=== PATIENT | female | born 1980 ===

== ENCOUNTER 2017-04-20 18:53 | Emergency (ER) | payer MEDICAID, OTHER ==
[2017-04-20 19:11] VITALS: BP 126/77; PULSE 91; RESP 16; TEMP 98.7; O2SAT 100
[2017-04-20 20:02] LABS: BASO # 0.1 K/uL (0.0-0.2); BASO % 1.3 % (0.0-2.0); EOS % 0.5 % (0.0-4.0); HEMOGLOBIN 14.2 g/dL (12.0-16.0); LYMPH # 2.2 K/uL (1.0-4.3); LYMPH % 24.9 % (20.0-40.0); MEAN CELL VOLUME 92.5 fl (81.0-99.0); MEAN CORPUSCULAR HEMOGLOBIN 30.6 pg (27.0-31.0); MEAN CORPUSCULAR HGB CONC 33.1 g/dL (33.0-37.0); MEAN PLATELET VOLUME 8.5 fl (7.2-11.7); MONO # 0.5 K/uL (0.0-0.8); MONO % 5.8 % (0.0-10.0); NEUT # 5.8 K/uL (1.8-7.0); NEUT % 67.5 % (50.0-75.0); NRBC % 0.1 % (0.0-0.0); RBC 4.64 Mil/uL (3.80-5.20); RED CELL DISTRIBUTION WIDTH 13.9 % (11.5-14.5); WHITE BLOOD COUNT 8.6 K/uL (4.8-10.8)
[2017-04-20 20:34] LABS: ALB/GLOB RATIO 1.1 (1.0-2.1); ALBUMIN 4.4 g/dL (3.5-5.0); ALT/SGPT 31 U/L (9-52); AST/SGOT 34 U/L (14-36); BLOOD UREA NITROGEN 10 mg/dl (7-17); GFR AFRICAN-AMERICAN > 60; GFR NON-AFRICAN AMERICAN > 60; LIPASE 116 U/L (23-300)
[2017-04-20 20:36] LABS: SQUAMOUS EPITHIAL 13 /hpf (0-5); URINE BACTERIA RARE (<OCC); URINE BILIRUBIN NEGATIVE (NEGATIVE); URINE BLOOD NEGATIVE (NEGATIVE); URINE CLARITY CLOUDY (Clear); URINE COLOR YELLOW (YELLOW); URINE GLUCOSE (UA) 50 mg/dL (Normal); URINE LEUKOCYTE ESTERASE NEG Leu/uL (Negative); URINE NITRATE NEGATIVE (NEGATIVE); URINE PROTEIN 30 mg/dL (NEGATIVE); URINE UROBILINOGEN 0.2-1.0 mg/dL (0.2-1.0)
--- NOTE | 2017-04-20 22:04 | ED PDOC ---
HPI: General Adult Time Seen by Provider: 04/20/17 19:21 Chief Complaint (Nursing): Abdominal Pain Chief Complaint (Provider): Abdominal Pain History Per: Patient History/Exam Limitations: no limitations Onset/Duration Of Symptoms: Days (x yesterday) Current Symptoms Are (Timing): Still Present Additional Complaint(s): Radha is a 36 year old female (G-8/P-3) who presents to the emergency department complaining of lower left-sided abdominal pain since yesterday. Denies any nausea, vaginal bleeding, urinary symptoms, vomiting, diarrhea or fever. Patient states she missed her last menstrual cycle. Patient reports taking morning after pill on 03/18 after she had unprotected sex. Patient believes she may be . PMD: No Family Provider Past Medical History Reviewed: Historical Data, Nursing Documentation, Vital Signs Vital Signs: Last Vital Signs Temp 98.7 F 04/20/17 19:09 Pulse 91 H 04/20/17 19:09 Resp 16 04/20/17 19:09 BP 126/77 04/20/17 19:09 Pulse Ox 100 04/20/17 22:10 - Medical History PMH: No Chronic Diseases - Surgical History Surgical History: (x 3) Other surgeries: Left kidney removed for donation - Family History Family History: States: Unknown Family Hx - Social History Current smoker - smoking cessation education provided: No Alcohol: None Drugs: Denies - Immunization History Hx Tetanus Toxoid Vaccination: No - Allergies Allergies/Adverse Reactions: Allergies Allergy/AdvReac Type Severity Reaction Status Date / Time No Known Allergies Allergy Verified 04/20/17 19:09 Review of Systems ROS Statement: Except As Marked, All Systems Reviewed And Found Negative Constitutional: Negative for: Fever Respiratory: Positive for: Cough Gastrointestinal: Positive for: Abdominal Pain. Negative for: Nausea, Vomiting , Diarrhea Genitourinary Female: Negative for: Dysuria, Hematuria, Vaginal Bleeding Physical Exam - Reviewed Nursing Documentation Reviewed: Yes Vital Signs Reviewed: Yes - Physical Exam Appears: Positive for: Non-toxic Head Exam: Positive for: ATRAUMATIC, NORMAL INSPECTION, NORMOCEPHALIC Skin: Positive for: Normal Color, Warm, Dry Eye Exam: Positive for: EOMI, Normal appearance, PERRL ENT: Positive for: Normal ENT Inspection Neck: Positive for: Normal Cardiovascular/Chest: Positive for: Regular Rate, Rhythm Respiratory: Positive for: Normal Breath Sounds. Negative for: Respiratory Distress Gastrointestinal/Abdominal: Positive for: Tenderness (Mild tenderness to left lower quadrant) Back: Positive for: Normal Inspection Extremity: Positive for: Normal ROM Neurologic/Psych: Positive for: Alert, Oriented (x 3) - Laboratory Results Result Diagrams: 04/20/17 19:56 04/20/17 19:56 Urine POC: Positive - ECG O2 Sat by Pulse Oximetry: 100 (RA) Pulse Ox Interpretation: Normal Medical Decision Making Medical Decision Making: Time: 19:34 Impression: 36 year old female with abdominal pain, signs of Plan: - Type and Screen Stat - Beta-hCG, Quadatitive - CMP - Lipase - Urine - ED Urine Dipstick - CBC - Urinalysis Stat - OB Transvaginal Ultrasound Time: 22:19 OB Transvaginal Ultrasound FINDINGS: Gestation: There is an intrauterine gestational sac with thick sheikh. Gestational sac measures 6.9 mm. A yolk sac is visible. A pole is present heart rate is 124 bpm. CRL 2 mm gestational age 5 weeks 5 days. The JONAH 12/16/2017 Clinical GA 5 weeks JONAH 12/21/2017 Placenta/amniotic fluid: Cannot be adequately evaluated due to the early gestational age. Uterus/cervix: Unremarkable. No myometrial mass. Uterus measures 7.6 cm x 4.1 cm x 6 cm. The uterus is anteverted. The cervix measures 4 cm. Ovaries: Unremarkable. No mass. LEFT 2.7 cm x 1.5 cm x 1.4 cm. RIGHT 3.3 cm x 1.6 cm x 2.9 cm Free fluid: No free fluid. IMPRESSION: 1. Single living intrauterine 2. Gestational age 5 weeks 5 days. 3. Negative uterus and ovaries Lab reviewed. No clinical abnormalities. Patient is stable for discharge. Diagnosis is abdominal pain and . Patient is referred to [facility] for follow up. Scribe Attestation: Documented by Cosmo Gonzalez, acting as a scribe for Hernan Billings MD Provider Scribe Attestation: All medical record entries made by the Scribe were at my direction and personally dictated by me. I have reviewed the chart and agree that the record accurately reflects my personal performance of the history, physical exam, medical decision making, and the department course for this patient. I have also personally directed, reviewed, and agree with the discharge instructions and disposition. Disposition - Clinical Impression Clinical Impression: Abdominal pain during - Patient ED Disposition Is Patient to be Admitted: No - Disposition [facility]errals[facility] [Outside] Disposition: Routine/Home Disposition Time: 22:27 Condition: STABLE Instructions: Abdominal Pain in (ED) Forms: [facility] (Malawian) Print Language: SWEDISH
--- NOTE | 2017-04-21 18:20 | US ---
HISTORY: Left lower quadrant pain COMPARISON: Correlation made with prior pelvic ultrasound 08/11/2015 TECHNIQUE: Transvaginal sonographic evaluation of the pelvis performed. FINDINGS: The uterus is anteverted measuring approximately UTERUS: 7.6 x 4.1 x 6.0 cm. Cervix measures 4.1 cm. There is a single living intrauterine gestation. Gestational sac: MSD = 0.7 cm = out of range Yolk sac: 0.3 cm pole: CRL = 0.2 cm = 5 weeks 5 days Heart motion: 124 BPM Average ultrasound age: 5 weeks 5 days 0 weeks 4 days JONAH based on average ultrasound age: 0912/16/2017 Measures cm. Normal in size and appearance. No fibroid or other mass lesion seen. ENDOMETRIUM: NA CERVIX: No cervical abnormality identified. RIGHT OVARY: Measures approximately 3.3 x 1.7 x 2.9 cm. No solid mass. Normal flow. LEFT OVARY: Measures approximately 2.7 x 1.5 x 1.4 cm. No solid mass. Normal flow. FREE FLUID: No significant free fluid noted. OTHER FINDINGS: None. IMPRESSION: Single living intrauterine station estimated at approximately 5 weeks 5 days 0 weeks 4 days heart rate detected at 1:24 BPM
== END 2017-04-20 22:47 | disposition home or self-care (01) ==
LOC: H.ER 18:53
DX: O26.891 Other specified pregnancy related conditions, first trimester (principal); Z3A.01 Less than 8 weeks gestation of pregnancy

== ENCOUNTER 2018-08-13 22:29 | Emergency (ER) | payer MEDICAID, OTHER ==
--- NOTE | 2018-08-14 00:04 | ED PDOC ---
HPI: Female Pain Time Seen by Provider: 08/13/18 22:59 Chief Complaint (Nursing): Female Genitourinary Chief Complaint (Provider): : abd pain, vaginal bleeding History Per: Patient, Customer Service Administrator (Nilson sharma/certified translator interpreter) Onset/Duration Of Symptoms: Days (2) Current Symptoms Are (Timing): Still Present Quality Of Discomfort: Cramping Additional Complaint(s): 37 y/o female, approximately 8 weeks , presents for evaluation of lower abdominal cramping and vaginal spotting x 2 days. Denies fever, nausea/vomiting, chest pain, shortness of breath, palpitations, urinary symptoms. Patient saw her Shoe Cleaner today and was sent to ED for an ultrasound Shoe Cleaner: Dr. Jarvis Abnormal Vaginal Bleeding: Yes Last Menstral Period: 06/11/18 : 5 Para: 3 Miscarriage: 1 Past Medical History Reviewed: Historical Data, Nursing Documentation, Vital Signs Vital Signs: Last Vital Signs Temp 98.1 F 08/13/18 22:49 Pulse 82 08/13/18 22:49 Resp 16 08/13/18 22:49 BP 118/70 08/13/18 22:49 Pulse Ox 97 08/13/18 22:49 Primary Care Provider: Thor Jarvis - Medical History PMH: No Chronic Diseases - Surgical History Surgical History: (x 3) - Family History Family History: States: Unknown Family Hx - Immunization History Hx Tetanus Toxoid Vaccination: No - Allergies Allergies/Adverse Reactions: Allergies Allergy/AdvReac Type Severity Reaction Status Date / Time No Known Allergies Allergy Verified 04/20/17 19:09 Review of Systems ROS Statement: Except As Marked, All Systems Reviewed And Found Negative Genitourinary Female: Positive for: Vaginal Bleeding, Pelvic Pain Physical Exam - Reviewed Nursing Documentation Reviewed: Yes Vital Signs Reviewed: Yes - Physical Exam Appears: Positive for: Well, Non-toxic, No Acute Distress Head Exam: Positive for: ATRAUMATIC, NORMAL INSPECTION, NORMOCEPHALIC Skin: Positive for: Normal Color Eye Exam: Positive for: Normal appearance ENT: Positive for: Normal ENT Inspection Cardiovascular/Chest: Positive for: Regular Rate, Rhythm Respiratory: Positive for: Normal Breath Sounds Gastrointestinal/Abdominal: Positive for: Bowel Sounds, Soft, Tenderness (suprapubic) Pelvic Exam: Positive for: External Exam Normal, No Cerv. Motion Tender, Blood (brown discharge in vaginal vault), Other (exam mixer and blender [facility] tech). Negative for: Active Bleeding, Tender Adnexa, Tender Uterus Back: Positive for: Normal Inspection Extremity: Positive for: Normal ROM Neurological/Psych: Positive for: Awake, Alert, Oriented (x3) - Laboratory Results Result Diagrams: 08/14/18 00:14 08/14/18 00:14 - ECG O2 Sat by Pulse Oximetry: 97 - Progress ED Course And Treament: 37 y/o female with pelvic pain and vaginal spotting in early -upreg -udip -cbc -cmp -beta hcg -OB TV u/s Obstetric ultrasound, transvaginal. Indication: Cramping, spotting with . Technique: Real-time ultrasound images were obtained. Findings: The uterus measures 11.5x5.3x6.8 cm. Anteverted uterus. Cervical length measuring 3.7 cm. Single, intrauterine gestation. Estimated gestational age 6 weeks and 4 days. Absent cardiac activity. Nonvisualization of the right ovary. Normal left ovary. Impression: demise Patient educated on findings (via [facility] tech/certified translator interpreter), discharged with instructions to follow up with business control specialist within 2 days Return precautions given Disposition - Clinical Impression Clinical Impression: demise due to miscarriage - Patient ED Disposition Is Patient to be Admitted: No Counseled Patient/Family Regarding: Studies Performed, Diagnosis, Need For Followup - Disposition Referrals: Kimo Forde MD [Primary Care Provider] - Disposition: Routine/Home Disposition Time: 03:15 Condition: STABLE Instructions: Dealing With Miscarriage, Miscarriage Print Language: SLOVENIAN
[2018-08-14 00:27] LABS: BASO % 0.4 % (0.0-2.0); EOS # 0.2 K/uL (0.0-0.7); EOS % 2.6 % (0.0-4.0); HEMOGLOBIN 12.7 g/dL (12.0-16.0); LYMPH # 2.5 K/uL (1.0-4.3); LYMPH % 29.3 % (20.0-40.0); MEAN CELL VOLUME 92.4 fl (81.0-99.0); MEAN CORPUSCULAR HEMOGLOBIN 31.5 pg (27.0-31.0); MEAN CORPUSCULAR HGB CONC 34.1 g/dL (33.0-37.0); MEAN PLATELET VOLUME 8.4 fl (7.2-11.7); MONO # 0.6 K/uL (0.0-0.8); MONO % 7.4 % (0.0-10.0); NEUT # 5.2 K/uL (1.8-7.0); NEUT % 60.3 % (50.0-75.0); NRBC % 0.1 % (0.0-0.0); RBC 4.04 Mil/uL (3.80-5.20); RED CELL DISTRIBUTION WIDTH 13.8 % (11.5-14.5); WHITE BLOOD COUNT 8.7 K/uL (4.8-10.8)
[2018-08-14 00:35] LABS: ALB/GLOB RATIO 1.3 (1.0-2.1); ALBUMIN 4.5 g/dL (3.5-5.0); ALT/SGPT 26 U/L (9-52); AST/SGOT 29 U/L (14-36); BLOOD UREA NITROGEN 10 mg/dl (7-17); CALCIUM 9.1 mg/dL (8.4-10.2); GFR NON-AFRICAN AMERICAN > 60
[2018-08-14 06:38] VITALS: BP 112/55; PULSE 63; RESP 18; TEMP 98; O2SAT 99
--- NOTE | 2018-08-14 14:40 | US ---
Date of service: 08/14/2018 HISTORY: ; cramping, spotting; LMP 06/10/2018; beta HCG 4842.6 COMPARISON: None available. TECHNIQUE: Transvaginal FINDINGS: UTERUS: Measures 11.5 x 5.3 x 6.8 cm. Normal in size and appearance. No fibroid or other mass lesion seen. There is an intrauterine gestation present without verifiable heartbeat activity-there is at this time no apparent M-mode this PACS packages This has been requested. The technologist has noted no heartbeat seen-however no M-mode is apparent Mean gestational sac diameter is 2 cm corresponding to 6 weeks 4 days. A tiny yolk sac 8 mm is noted. An embryonic pole of 7 mm corresponding to 6 weeks 4 days is noted. CERVIX: No cervical abnormality identified. RIGHT OVARY: Not visualized. LEFT OVARY: Measures 2.5 x 1.9 x 1.7 cm. No solid mass. Normal flow. FREE FLUID: No significant free fluid noted. OTHER FINDINGS: None. IMPRESSION: Although the technologist has noted-no heart beat seen on the worksheet and the preliminary [place] rad report has stated demise, an M-mode tracing of the heart beat is not appreciated in this is recommended to be included in this PACS package This recommendation has been placed in the tech notes. Pending clinical management, would strongly consider rechecking transvaginal ultrasound technique with M-mode heart tracing By biometric parameters the age is 6 weeks 4 days. Contrast with the clinical dates by LMP of 9 weeks 2 days. Comments: Study marked for PA review .
== END 2018-08-14 03:25 | disposition home or self-care (01) ==
LOC: H.ER 22:29
DX: O03.9 Complete or unspecified spontaneous abortion without complication (principal); Z3A.01 Less than 8 weeks gestation of pregnancy

== ENCOUNTER 2018-08-15 16:19 | Emergency (ER) | payer MEDICAID ==
[2018-08-15 17:08] VITALS: RESP 18; O2SAT 99
[2018-08-15 17:09] VITALS: BMI 32.2
[2018-08-15 17:51] LABS: BASO % 0.4 % (0.0-2.0); EOS # 0.2 K/uL (0.0-0.7); LYMPH # 2.1 K/uL (1.0-4.3); LYMPH % 24.3 % (20.0-40.0); MEAN CELL VOLUME 93.3 fl (81.0-99.0); MEAN CORPUSCULAR HEMOGLOBIN 31.3 pg (27.0-31.0); MEAN CORPUSCULAR HGB CONC 33.6 g/dL (33.0-37.0); MEAN PLATELET VOLUME 8.4 fl (7.2-11.7); MONO # 0.6 K/uL (0.0-0.8); MONO % 6.9 % (0.0-10.0); NEUT # 5.6 K/uL (1.8-7.0); NEUT % 66.4 % (50.0-75.0); NRBC % 0.1 % (0.0-0.0); RBC 4.15 Mil/uL (3.80-5.20); RED CELL DISTRIBUTION WIDTH 13.8 % (11.5-14.5); WHITE BLOOD COUNT 8.5 K/uL (4.8-10.8)
[2018-08-15 18:03] LABS: ALB/GLOB RATIO 1.2 (1.0-2.1); ALBUMIN 4.4 g/dL (3.5-5.0); ALT/SGPT 22 U/L (9-52); AST/SGOT 20 U/L (14-36); BLOOD UREA NITROGEN 8 mg/dl (7-17); CALCIUM 8.9 mg/dL (8.4-10.2); GFR NON-AFRICAN AMERICAN > 60
--- NOTE | 2018-08-15 18:21 | ED PDOC ---
HPI: General Adult Time Seen by Provider: 08/15/18 17:06 Chief Complaint (Nursing): Female Genitourinary History Per: Patient, Diagnostic Sales Specialist (voyce congolese line used [id number]) Onset/Duration Of Symptoms: Days Recently: Seen In ED Additional Complaint(s): 37 yo F, A2 presents to ER for follow up to a call back. Pt reports she was seen here and discharged yesterday after being told she had demise. Pt was called back today as new US reports stated M-mode was not done to look at fetus HR. Pt notes since her visit she has been having suprapubic abdominal pain with vaginal spotting. Blood is when she wipes and in her underwear, but small amounts. She has been taking Tylenol for pain, last dose yesterday. LMP: 06/10 OBGYN: Dr. Jarvis Past Medical History Reviewed: Historical Data, Nursing Documentation, Vital Signs Vital Signs: Last Vital Signs Temp 98.6 F 08/15/18 17:07 Pulse 75 08/15/18 17:07 Resp 18 08/15/18 17:07 BP 120/75 08/15/18 17:07 Pulse Ox 99 08/15/18 17:07 Primary Care Provider: Kimo Forde - Medical History PMH: Chronic Kidney Disease - Surgical History Surgical History: (x 3) - Family History Family History: States: Unknown Family Hx - Immunization History Hx Tetanus Toxoid Vaccination: No - Allergies Allergies/Adverse Reactions: Allergies Allergy/AdvReac Type Severity Reaction Status Date / Time No Known Allergies Allergy Verified 04/20/17 19:09 Review of Systems Constitutional: Negative for: Fever, Chills Gastrointestinal: Positive for: Abdominal Pain Genitourinary Female: Positive for: Vaginal Bleeding. Negative for: Dysuria, Frequency, Vaginal Discharge Physical Exam - Reviewed Nursing Documentation Reviewed: Yes Vital Signs Reviewed: Yes - Physical Exam Comments: GENERAL APPEARANCE: Patient is awake, alert, oriented x 3, in no distress. SKIN: Warm, dry; (-) cyanosis. EYES: (-) conjunctival pallor, (-) scleral icterus. ENMT: Mucous membranes moist. NECK: (-) tenderness, (-) stiffness, (-) lymphadenopathy. CHEST AND RESPIRATORY: (-) rales, (-) rhonchi, (-) wheezes; breath sounds equal bilaterally. HEART AND CARDIOVASCULAR: (-) irregularity; (-) murmur, (-) gallop. ABDOMEN AND GI: (-) distention. Bowel sounds active; (+) mild suprapubic tenderness (-) guarding, (-) rebound, (-) palpable masses, (-) CVA tenderness. EXTREMITIES: (-) deformity, (-) edema, (+) distal pulses. NEURO AND PSYCH: Mental status as above; (-) focal findings. - Laboratory Results Result Diagrams: 08/15/18 17:41 08/15/18 17:41 Lab Results: Total Bilirubin 0.5 mg/dl (0.2-1.3) 08/15/18 17:41 AST 20 U/L (14-36) 08/15/18 17:41 ALT 22 U/L (9-52) 08/15/18 17:41 Alkaline Phosphatase 40 U/L (38-126) 08/15/18 17:41 Total Protein 7.8 G/DL (6.3-8.2) 08/15/18 17:41 Albumin 4.4 g/dL (3.5-5.0) 08/15/18 17:41 Globulin 3.5 gm/dL (2.2-3.9) 08/15/18 17:41 Albumin/Globulin Ratio 1.2 (1.0-2.1) 08/15/18 17:41 Beta HCG, Quant 3853.00 mIU/mL 08/15/18 17:41 - ECG O2 Sat by Pulse Oximetry: 99 Medical Decision Making Medical Decision Makin:06 initial eval -miscarriage vs threatened -- labs -- beta hcg -- type and screen -- OB US -- pt does not want anything for pain -- re eval US reports from 08/14/2018 UTERUS: Measures 11.5 x 5.3 x 6.8 cm. Normal in size and appearance. No fibroid or other mass lesion seen. There is an intrauterine gestation present without verifiable heartbeat activity-there is at this time no apparent M-mode this PACS packages This has been requested. The technologist has noted no heartbeat seen-however no M-mode is apparent Mean gestational sac diameter is 2 cm corresponding to 6 weeks 4 days. A tiny yolk sac 8 mm is noted. An embryonic pole of 7 mm corresponding to 6 weeks 4 days is noted. IMPRESSION: Although the technologist has noted-no heart beat seen on the worksheet and the preliminary [place] rad report has stated demise, an M-mode tracing of the heart beat is not appreciated in this is recommended to be included in this PACS package This recommendation has been placed in the tech notes. Pending clinical management, would strongly consider rechecking transvaginal ultrasound technique with M-mode heart tracing By biometric parameters the age is 6 weeks 4 days. Contrast with the clinical dates by LMP of 9 weeks 2 days. Comments: Study marked for PA review . 18:20 likely miscarriage as beta hcg quant has gone down 08/14/2018 it was 4842.6 today it is 3853.0 otherwise labs unremarkable US FINDINGS: GESTATION: Intrauterine gestational sac and pole. A pole and gestational sac correspond to approximate 6 week and 4 day gestation. There is no cardiac activity identified. Small subchorionic bleed measuring 2 x 2 cm anteriorly suspected. UTERUS: Unremarkable. No myometrial mass. CERVIX: Closed. Unremarkable. OVARIES: Right corpus luteum cyst measuring 1.6 x 1 cm. FREE FLUID: No free fluid. IMPRESSION: Findings compatible with demise. Small subchorionic bleed. Small right corpus luteum cyst. Close clinical correlation advised. 20:[address] Kelly Cohen as he was notifed previously of results [phone] 20:[address] no call back from Dr. Traylor as per previous reports he was contacted multiple times regarding US discrepancies and never called back Pt is asking to leave pt is otherwise stable at this time for dc, labs wnl, VSS, abdomen is soft and non tender, hemonymaically stable used congolese voyce [id number] to discuss results, diagnosis, treatment, return precautions and f/u with pt who is understanding, in agreement and stable for dc Disposition - Clinical Impression Clinical Impression: demise due to miscarriage - Patient ED Disposition Is Patient to be Admitted: No Counseled Patient/Family Regarding: Studies Performed, Diagnosis, Need For Followup - Disposition Referrals: Thor Jarvis MD [Medical Doctor] - Disposition: Routine/Home Disposition Time: 20:41 Condition: STABLE Additional Instructions: Regrese a la ED para sntomas nuevos o que empeoran, fiebre> 100.4, dolor intens o o sangrado. Gaston un seguimiento con carft mdico simon pronto john sea posible. Continuar con Tylenol segn sea necesario para el dolor. Instructions: Miscarriage, Dealing With Miscarriage Forms: [facility] (Sinhala) Print Language: LAO - POA Present On Arrival: None
[2018-08-15 22:26] VITALS: BP 103/68; PULSE 72; TEMP 98.7
--- NOTE | 2018-08-16 13:40 | US ---
Date of service: 08/15/2018 PROCEDURE: OB Pelvic Ultrasound HISTORY: call back, M-mode needed 06/10/2018 COMPARISON: 08/14/2018 FINDINGS: UTERUS: Gestational sac: 22 mm equal to 6 weeks 5 days [place]-rump length: 6 mm equivalent to 6 weeks 3 days Heart rate: No cardiac activity detected age (Ultrasound estimated): 6 weeks 4 days [place]-gestational hemorrhage: There is a perigestational hemorrhage identified measuring approximately 2.0 x 1.9 x 2.0 cm. Date of delivery (Ultrasound estimated) : 04/06/2019 Uterus measures 9.6 x 5.3 x 5.6 cm. Normal in size and appearance. CERVIX: Measures 3.1 cm. Long and closed. No cervical abnormality seen. RIGHT OVARY: Measures 3.5 x 1.7 x 3.3 cm. No mass lesion. Normal flow. LEFT OVARY: Measures 2.1 x 1.8 x 2.3 cm. No solid mass. Normal flow. FREE FLUID: None. OTHER FINDINGS: None. IMPRESSION: Intrauterine gestation of approximately 6 weeks 4 days gestational age. No detectable cardiac activity. Although this may reflect demise, follow-up with transvaginal ultrasound and serial beta HCG evaluation is advised due to the early stage of gestation. There is a subchorionic hemorrhage noted. No additional abnormality. The preliminary findings for this examination were reported by [facility] Radiology at 8:02 p.m. on 08/15/2018. There is discordance of this report with the preliminary findings. At this early stage of gestation, demise cannot be determined with certainty. Follow-up with transvaginal pelvic ultrasound and serial beta HCG is necessary for determination of viability or non-viability. This discrepancy was discussed by telephone with EDITH Quinonez at 1:30 p.m. on 08/16/2018.
== END 2018-08-15 20:45 | disposition home or self-care (01) ==
LOC: H.ER 16:19
DX: R10.2 Pelvic and perineal pain (principal); O03.9 Complete or unspecified spontaneous abortion without complication; Z3A.01 Less than 8 weeks gestation of pregnancy; O26.831 Pregnancy related renal disease, first trimester; N18.9 Chronic kidney disease, unspecified

== ENCOUNTER 2018-08-18 15:15 | Emergency (ER) | payer MEDICAID ==
[2018-08-18 15:15] VITALS: BMI 32.2
[2018-08-18 15:34] VITALS: O2SAT 100
[2018-08-18] MEDS ORDERED: Sodium Chloride 0.9% 1,000 ML IV STA ×2 (15:49→16:04)
--- NOTE | 2018-08-18 15:58 | ED PDOC ---
HPI: General Adult Time Seen by Provider: 08/18/18 15:56 Chief Complaint (Nursing): Female Genitourinary Chief Complaint (Provider): vaginal bleeding History Per: Patient (37 y/o female approx 6 week gestation with demise noted on ultrasound this week here with vaginal bleeding heavy x 1 day associatd with 8 pads since last night. Notes moderate pain not controlled by motrin (patient took at home.)) Past Medical History Reviewed: Historical Data, Nursing Documentation, Vital Signs Vital Signs: Last Vital Signs Temp 98.9 F 08/18/18 15:32 Pulse 78 08/18/18 15:32 Resp 18 08/18/18 15:32 BP 109/64 08/18/18 15:32 Pulse Ox 100 08/18/18 15:32 Primary Care Provider: Ricardo Aranda - Medical History PMH: Chronic Kidney Disease - Surgical History Surgical History: (x 3) - Family History Family History: States: Unknown Family Hx - Immunization History Hx Tetanus Toxoid Vaccination: No - Home Medications Home Medications: Ambulatory Orders Medication Instructions Recorded Ibuprofen [Motrin] 600 mg PO Q8 PRN #21 tab 08/18/18 Misoprostol 4 tab PO Q12 #8 tablet 08/18/18 - Allergies Allergies/Adverse Reactions: Allergies Allergy/AdvReac Type Severity Reaction Status Date / Time No Known Allergies Allergy Verified 08/18/18 15:35 Review of Systems ROS Statement: Except As Marked, All Systems Reviewed And Found Negative Physical Exam - Reviewed Nursing Documentation Reviewed: Yes Vital Signs Reviewed: Yes - Physical Exam Appears: Positive for: Well, Non-toxic, No Acute Distress Head Exam: Positive for: ATRAUMATIC, NORMAL INSPECTION, NORMOCEPHALIC Skin: Positive for: Normal Color, Warm, DRY Eye Exam: Positive for: EOMI, Normal appearance, PERRL ENT: Positive for: Normal ENT Inspection Neck: Positive for: Normal, Painless ROM Cardiovascular/Chest: Positive for: Regular Rate, Rhythm Respiratory: Positive for: CNT, Normal Breath Sounds Gastrointestinal/Abdominal: Positive for: Normal Exam, Soft Back: Positive for: Normal Inspection Extremity: Positive for: Normal ROM Neurological/Psych: Positive for: Awake, Alert, Normal Tone - Laboratory Results Result Diagrams: 08/18/18 16:00 08/18/18 16:00 - ECG O2 Sat by Pulse Oximetry: 100 - Progress ED Course And Treament: US pelvic IMPRESSION: Findings most compatible with in progress as discussed above. No pole is appreciated with probable residual gestational sac within the endocervical canal at this time. Please see discussion above. Comparison has been made to prior obstetric ultrasound 08/15/2018. Seen by Dr. Morin. Patient bleeding controlled. Will d/c with misoprostol and motrin rx. Disposition - Clinical Impression Clinical Impression: Miscarriage - Patient ED Disposition Is Patient to be Admitted: No - Disposition [facility]] Disposition: Routine/Home Disposition Time: 19:03 Condition: FAIR Prescriptions: Ibuprofen [Motrin] 600 mg PO Q8 PRN #21 tab PRN Reason: Pain, Moderate (4-7) Misoprostol 4 tab PO Q12 #8 tablet Instructions: Miscarriage (DC) Forms: [facility] ED School/Work Excuse Print Language: MAORI
[2018-08-18 16:23] LABS: BASO % 0.3 % (0.0-2.0); EOS # 0.2 K/uL (0.0-0.7); EOS % 2.1 % (0.0-4.0); HEMOGLOBIN 12.5 g/dL (12.0-16.0); LYMPH # 1.8 K/uL (1.0-4.3); LYMPH % 18.3 % (20.0-40.0); MEAN CORPUSCULAR HEMOGLOBIN 30.4 pg (27.0-31.0); MEAN CORPUSCULAR HGB CONC 33.1 g/dL (33.0-37.0); MEAN PLATELET VOLUME 8.4 fl (7.2-11.7); MONO # 0.6 K/uL (0.0-0.8); MONO % 5.7 % (0.0-10.0); NEUT # 7.4 K/uL (1.8-7.0); NEUT % 73.6 % (50.0-75.0); RBC 4.1 Mil/uL (3.80-5.20); RED CELL DISTRIBUTION WIDTH 13.6 % (11.5-14.5); WHITE BLOOD COUNT 10.1 K/uL (4.8-10.8)
[2018-08-18 16:51] LABS: ALB/GLOB RATIO 1.3 (1.0-2.1); ALBUMIN 4.2 g/dL (3.5-5.0); ALT/SGPT 20 U/L (9-52); AST/SGOT 21 U/L (14-36); BLOOD UREA NITROGEN 7 mg/dl (7-17); CALCIUM 8.4 mg/dL (8.4-10.2); GFR NON-AFRICAN AMERICAN > 60
--- NOTE | 2018-08-18 18:08 | US ---
Date of service: 08/18/2018 PROCEDURE: OB Pelvic Ultrasound HISTORY: vaginal bleeding in pregnany; COMPARISON: Transabdominal and transvaginal pelvic ultrasound 08/15/2018. FINDINGS: UTERUS: Interval ultrasonography of the pelvic contents reveals an anteverted uterus measuring 10.4 x 5.0 x 6.5 cm without myometrial lesion appreciable. The upper and mid endometrial cavity appear collapsed but heterogeneous in overall echotexture as post of the prior with gestational sac and pole. Instead, there is now mild hypo echoic soft tissue anteriorly at the mid endometrial cavity with fluid in the endocervical canal distending it at its midportion to 1.5 x 1.1 x 1.1 cm potentially reflecting residual gestational sac. No pole is appreciable the soft tissue is suggested towards its left sided margins in the endocervical canal. Overall pattern reflects in progress. Endometrium measures 13.9 mm. CERVIX: See above. RIGHT OVARY: Measures 3.7 x 2.2 x 2.3 cm. No mass. Normal flow. LEFT OVARY: Measures 2.2 x 1.6 x 2.3 cm. No mass. Normal flow. FREE FLUID: None. OTHER FINDINGS: None. IMPRESSION: Findings most compatible with in progress as discussed above. No pole is appreciated with probable residual gestational sac within the endocervical canal at this time. Please see discussion above. Comparison has been made to prior obstetric ultrasound 08/15/2018.
--- NOTE | 2018-08-18 19:04 | CP.PCM.PN ---
Subjective - Date & Time of Evaluation Date of Evaluation: 08/18/18 Time of Evaluation: 19:01 - Subjective Subjective: The patient is a 37-year-old 2 para 1 who presents to [facility] with a diagnosis of missed AB. Patient states she saw her PMD Dr. Traylor and was advised for expectant management. Patient states she started passing heavy clots became concerned and decided to seek medical attention. Patient denies any shortness of breath palpitations nausea vomiting Objective - Vital Signs/Intake and Output Vital Signs (last 24 hours): Temp Pulse Resp BP Pulse Ox 98.9 F 78 18 109/64 100 08/18/18 15:32 08/18/18 15:32 08/18/18 15:32 08/18/18 15:32 08/18/18 15:58 - Labs Labs: 08/18/18 16:00 08/18/18 16:00 - Constitutional Appears: Well - Head Exam Head Exam: ATRAUMATIC - Eye Exam Eye Exam: Normal appearance - ENT Exam ENT Exam: Mucous Membranes Moist - Neck Exam Neck Exam: Normal Inspection - Respiratory Exam Respiratory Exam: Clear to Ausculation Bilateral - Cardiovascular Exam Cardiovascular Exam: REGULAR RHYTHM - GI/Abdominal Exam GI & Abdominal Exam: Normal Bowel Sounds - Exam Speculum exam: NORMAL SPECULUM EXAM Bimanual exam: NORMAL BIMANUAL EXAM Additional comments: Scant blood noted in the vagina Assessment and Plan - Assessment and Plan (Free Text) Assessment: Missed Plan: The patient was counseled regarding medical management versus surgical management after thorough discussion we discussed the risks benefits alternatives of each mode of therapy patient opted for medical management. The patient was advised to use misoprostol 800 mg every 12 hours x 2 doses, Motrin for discomfort, patient to follow-up with a PMD for complete resolution. Patient and partner given the opportunity to ask questions all questions answered and they agreed to plan of care
[2018-08-18 19:18] VITALS: BP 132/66; PULSE 75; RESP 16; TEMP 98.5
== END 2018-08-18 17:15 | disposition home or self-care (01) ==
LOC: H.ER 15:15
DX: O02.1 Missed abortion (principal); Z3A.01 Less than 8 weeks gestation of pregnancy
CPT/HCPCS: 76817; 80053; 84702; 85025; 86850; 86900; 99283; J7030